=== PATIENT | male | born 1950 | race Two or more races ===

== ENCOUNTER → 2016-12-23 | Day surgery (SDC) | payer MEDICARE, OTHER ==
[2016-12-19 10:53] LABS: Basophils # (auto) 0 uL; Basophils % (auto) 0.8 % (0.0-2.0); Eosinophils # (auto) 0.1 uL; Eosinophils % (auto) 2.3 % (0.0-7.0); Hematocrit 43.9 % (41.0-53.0); Hemoglobin 14.3 g/dL (13.5-17.5); Lymphocytes # (auto) 2.6 uL; Lymphocytes % (auto) 40.4 % (10.0-50.0); Mean Corpuscular Hemoglobin 29.2 pg (28.0-32.0); Mean Corpuscular Hgb Conc. 32.5 g/dL (32.0-36.0); Mean Corpuscular Volume 89.6 fL (80.0-100.0); Mean Platelet Volume 8.4 fL (7.4-10.4); Monocytes # (auto) 0.7 uL; Monocytes % (auto) 10.6 % (0.0-12.0); Neutrophils % (auto) 45.9 % (37.0-80.0); Platelet Count (auto) 263 10^3/uL (140-450); Red Cell Distribution Width 12.6 % (11.6-16.0); White Blood Cell 6.5 10^3/uL (4.4-10.8)
[2016-12-19 11:14] LABS: INR 1.04 (0.9-1.15); Partial Thromboplastin Time 26.2 sec (22.64-33.71); Prothrombin Time 10.7 sec (9.37-12.3)
[~2016-12-23] VITALS: Ht 172.7 cm; Wt 88.9 kg
[~2016-12-23] MED LIST: LISI40TA PO; MIDAZOLAM HCL 5 MG/ML-1ML VIAL ONE; ROSU20TA14 PO; SODIUM CHLORIDE LOCK 10 ML ONE; diphenhdrAMINE HCL 50 MG/1 ML VL ONE; fentaNYL CITRATE 100 MCG/2 ML VL ONE
== END | disposition home or self-care (01) ==
LOC: GI 08:35
PROVIDERS: ATTEND Internal Medicine Gastroenterology
DX: Z53.9 Procedure and treatment not carried out, unspecified reason (principal)
CPT/HCPCS: 36415; 85025; 85049; 85610; 85730; J2250; J3010

== ENCOUNTER → 2017-02-04 | Outpatient (CLI) | payer MEDICARE, OTHER ==
[~2017-02-04] MED LIST changes: -MIDAZOLAM HCL 5 MG/ML-1ML VIAL ONE; -SODIUM CHLORIDE LOCK 10 ML ONE; -diphenhdrAMINE HCL 50 MG/1 ML VL ONE; -fentaNYL CITRATE 100 MCG/2 ML VL ONE
== END | disposition home or self-care (01) ==
LOC: LAB 08:52
DX: Z11.59 Encounter for screening for other viral diseases (principal)
CPT/HCPCS: 36415; 86704; 86706; 86708; 86803; 87340

== ENCOUNTER → 2018-10-27 | Outpatient (CLI) | payer MEDICARE, OTHER ==
[2018-10-27 09:45] LABS: Basophils # (auto) 0.1 uL; Basophils % (auto) 1.3 % (0.0-2.0); Eosinophils # (auto) 0.1 uL; Eosinophils % (auto) 1.9 % (0.0-7.0); Hematocrit 44.1 % (41.0-53.0); Hemoglobin 14.8 g/dL (13.5-17.5); Lymphocytes # (auto) 1.5 uL; Lymphocytes % (auto) 31.9 % (10.0-50.0); Mean Corpuscular Hemoglobin 30.8 pg (28.0-32.0); Mean Corpuscular Hgb Conc. 33.5 g/dL (32.0-36.0); Mean Corpuscular Volume 91.9 fL (80.0-100.0); Monocytes # (auto) 0.5 uL; Neutrophils # (auto) 2.6 uL; Neutrophils % (auto) 53.9 % (37.0-80.0); Platelet Count (auto) 227 10^3/uL (140-450); Red Cell Distribution Width 12.2 % (11.8-14.3); White Blood Cell 4.9 10^3/uL (4.4-10.8)
[2018-10-27 09:51] LABS: Urine Bacteria NONE SEEN /hpf (None Seen); Urine Blood Negative /uL (Negative); Urine Specific Gravity 1.016 (1.001-1.035); Urine WBC 1 /hpf (0 - 3)
[2018-10-27 10:16] LABS: Potassium 4.2 mmol/L (3.5-5.1)
[2018-10-27 10:22] LABS: Albumin 4.3 g/dL (3.4-5.0); BUN/Creatinine Ratio 13.1; Bilirubin, Total 0.8 mg/dL (0.2-1.0); Calcium 9.2 mg/dL (8.5-10.1); Total Protein 7.7 g/dL (6.4-8.2)
== END | disposition home or self-care (01) ==
LOC: LAB 08:58
PROVIDERS: ATTEND Internal Medicine
DX: I10 Essential (primary) hypertension (principal); E78.5 Hyperlipidemia, unspecified; Z79.899 Other long term (current) drug therapy
CPT/HCPCS: 36415; 80053; 80061; 81001; 83036; 84439; 84443; 84550; 85025

== ENCOUNTER → 2018-12-21 | Day surgery (SDC) | payer MEDICARE, OTHER ==
[2018-12-15 14:46] LABS: Basophils # (auto) 0.1 uL; Basophils % (auto) 1.2 % (0.0-2.0); Eosinophils # (auto) 0.1 uL; Eosinophils % (auto) 2.3 % (0.0-7.0); Hematocrit 43.9 % (41.0-53.0); Hemoglobin 14.7 g/dL (13.5-17.5); Lymphocytes # (auto) 2.3 uL; Lymphocytes % (auto) 36.1 % (10.0-50.0); Mean Corpuscular Hemoglobin 30.8 pg (28.0-32.0); Mean Corpuscular Hgb Conc. 33.5 g/dL (32.0-36.0); Monocytes # (auto) 0.9 uL; Monocytes % (auto) 14.3 % (0.0-12.0); Neutrophils # (auto) 2.9 uL; Neutrophils % (auto) 46.1 % (37.0-80.0); Nucleated Red Blood Cells % 0.1 %; Platelet Count (auto) 204 10^3/uL (140-450); Red Blood Cells 4.78 10^6/uL (4.5-5.90); Red Cell Distribution Width 12.6 % (11.8-14.3); White Blood Cell 6.4 10^3/uL (4.4-10.8)
[2018-12-15 15:20] LABS: INR 0.95 (0.9-1.15); Partial Thromboplastin Time 26.5 sec (23.78-33.04); Prothrombin Time 10.2 sec (9.27-12.13)
[~2018-12-21] VITALS: Ht 172.7 cm; Wt 82.1 kg
[~2018-12-21] MED LIST changes: +CHOL20007 PO; +COLC0.6T56 PO; +SODIUM CHLORIDE LOCK 10 ML ONE; +diphenhdrAMINE HCL 50 MG/1 ML VL ONE
[2018-12-21] MEDS: fentaNYL CITRATE 100 MCG/2 ML VL ONE ×3 (10:41→10:50)
[2018-12-21] MEDS: MIDAZOLAM HCL 5 MG/ML-1ML VIAL ONE ×3 (10:41→10:50)
[2018-12-21 11:31] VITALS: BP 113/68
== END | disposition home or self-care (01) ==
LOC: SUR 08:53
PROVIDERS: ATTEND Internal Medicine Gastroenterology
DX: Z12.11 Encounter for screening for malignant neoplasm of colon (principal); D12.5 Benign neoplasm of sigmoid colon; K57.30 Diverticulosis of large intestine without perforation or abscess without bleeding; K64.8 Other hemorrhoids; I10 Essential (primary) hypertension; M10.9 Gout, unspecified; L40.9 Psoriasis, unspecified; Z83.3 Family history of diabetes mellitus; Z88.6 Allergy status to analgesic agent; Z98.890 Other specified postprocedural states; Z80.1 Family history of malignant neoplasm of trachea, bronchus and lung; Z81.1 Family history of alcohol abuse and dependence; Z79.899 Other long term (current) drug therapy
CPT/HCPCS: 36415; 45385; 85025; 85610; 85730; 88305; J1200; J2250; J3010; J7030; G0500

== ENCOUNTER → 2019-09-14 | Outpatient (CLI) | payer MEDICARE, OTHER ==
[~2019-09-14] MED LIST changes: -SODIUM CHLORIDE LOCK 10 ML ONE; -diphenhdrAMINE HCL 50 MG/1 ML VL ONE
[2019-09-14 09:30] LABS: Urine WBC None Seen /hpf (0 - 3)
[2019-09-14 09:44] LABS: Basophils # (auto) 0 uL; Basophils % (auto) 0.9 % (0.0-2.0); Eosinophils # (auto) 0.1 uL; Eosinophils % (auto) 1.7 % (0.0-7.0); Hematocrit 43.9 % (41.0-53.0); Hemoglobin 14.6 g/dL (13.5-17.5); Lymphocytes # (auto) 1.8 uL; Lymphocytes % (auto) 34.9 % (10.0-50.0); Mean Corpuscular Hemoglobin 30.6 pg (28.0-32.0); Mean Corpuscular Hgb Conc. 33.4 g/dL (32.0-36.0); Mean Corpuscular Volume 91.8 fL (80.0-100.0); Monocytes # (auto) 0.4 uL; Monocytes % (auto) 8.7 % (0.0-12.0); Neutrophils # (auto) 2.8 uL; Neutrophils % (auto) 53.8 % (37.0-80.0); Platelet Count (auto) 221 10^3/uL (140-450); Red Blood Cells 4.78 10^6/uL (4.5-5.90); Red Cell Distribution Width 12.7 % (11.8-14.3); White Blood Cell 5.1 10^3/uL (4.4-10.8)
[2019-09-14 09:45] LABS: Urine Bacteria NONE SEEN /hpf (None Seen); Urine Blood Negative /uL (Negative); Urine Specific Gravity 1.023 (1.001-1.035)
[2019-09-14 10:26] LABS: Potassium 4.3 mmol/L (3.5-5.1)
[2019-09-14 10:42] LABS: Albumin 4.1 g/dL (3.4-5.0); BUN/Creatinine Ratio 15.5; Bilirubin, Total 0.8 mg/dL (0.2-1.0); Total Protein 7.5 g/dL (6.4-8.2); Uric Acid 5.9 mg/dL (3.5-7.2)
== END | disposition home or self-care (01) ==
LOC: LAB 08:39
PROVIDERS: ATTEND Nurse Practitioner
DX: E78.5 Hyperlipidemia, unspecified (principal); M1A.0720 Idiopathic chronic gout, left ankle and foot, without tophus (tophi)
CPT/HCPCS: 36415; 80053; 80061; 81001; 84443; 84550; 85025

== ENCOUNTER → 2020-12-29 | Outpatient (CLI) | payer OTHER ==
[~2020-12-29] MED LIST changes: -LISI40TA PO; +LISI40TA11 PO
[2020-12-29 08:00] LABS: Basophils # (auto) 0 10 ^3/uL (0-0.2); Basophils % (auto) 0.5 % (0.0-2.0); Eosinophils # (auto) 0.2 10 ^3/uL (0-0.8); Eosinophils % (auto) 2.5 % (0.0-7.0); Hematocrit 41.8 % (41.0-53.0); Hemoglobin 14.3 g/dL (13.5-17.5); Lymphocytes # (auto) 2.3 10 ^3/uL (0.4-5.4); Lymphocytes % (auto) 37.9 % (10.0-50.0); Mean Corpuscular Hemoglobin 31.3 pg (28.0-32.0); Mean Corpuscular Hgb Conc. 34.1 g/dL (32.0-36.0); Mean Corpuscular Volume 91.7 fL (80.0-100.0); Monocytes # (auto) 0.5 10 ^3/uL (0-1.3); Monocytes % (auto) 8.8 % (0.0-12.0); Neutrophils % (auto) 50.3 % (37.0-80.0); Nucleated Red Blood Cells % 0.1 %; Platelet Count (auto) 222 10^3/uL (140-450); Red Blood Cells 4.56 10^6/uL (4.5-5.90); Red Cell Distribution Width 12.7 % (11.8-14.3); White Blood Cell 5.9 10^3/uL (4.4-10.8)
[2020-12-29 08:06] LABS: Urine Amorphous Crystal MANY /hpf (None Seen); Urine Bacteria NONE SEEN /hpf (None Seen); Urine Blood Negative /uL (Negative); Urine Mucus FEW (None Seen); Urine WBC 2 /hpf (0 - 3)
[2020-12-29 08:29] LABS: Potassium 4.4 mmol/L (3.5-5.1)
[2020-12-29 08:38] LABS: Albumin 3.9 g/dL (3.4-5.0); BUN/Creatinine Ratio 15.9; Calcium 8.9 mg/dL (8.5-10.1); Total Protein 7.6 g/dL (6.4-8.2)
== END | disposition home or self-care (01) ==
LOC: LAB 07:46
PROVIDERS: ATTEND Student in an Organized Health Care Education/Training Program
DX: I10 Essential (primary) hypertension (principal); R73.9 Hyperglycemia, unspecified
CPT/HCPCS: 36415; 80053; 80061; 81001; 83036; 84443; 85025

== ENCOUNTER → 2021-02-20 | Outpatient (CLI) | payer OTHER | END | disposition home or self-care (01) | LOC: XYW 10:15 | PROVIDERS: ATTEND Orthopaedic Surgery Adult Reconstructive Orthopaedic Surgery | DX: S46.011A Strain of muscle(s) and tendon(s) of the rotator cuff of right shoulder, initial encounter (principal); S46.811A Strain of other muscles, fascia and tendons at shoulder and upper arm level, right arm, initial encounter; M19.011 Primary osteoarthritis, right shoulder; M25.411 Effusion, right shoulder; X58.XXXA Exposure to other specified factors, initial encounter; Y93.89 Activity, other specified; Y92.89 Other specified places as the place of occurrence of the external cause; Y99.8 Other external cause status | CPT/HCPCS: 73221 ==

== ENCOUNTER → 2021-06-20 | Outpatient (CLI) | payer OTHER ==
[~2021-06-20] VITALS: Ht 172.7 cm; Wt 74.8 kg
[~2021-06-20] MED LIST changes: +ADENOSINE 63 MG in GIVE UN-DILUTED 0 ML IV ONE
== END | disposition home or self-care (01) ==
LOC: XY 07:43
PROVIDERS: ATTEND Internal Medicine
DX: Z01.810 Encounter for preprocedural cardiovascular examination (principal)
CPT/HCPCS: 78452; 93017; A9500; J0153

== ENCOUNTER 2021-07-03 09:31 | Day surgery (SDC) | payer OTHER ==
[2021-06-28 11:49] LABS: Basophils # (auto) 0 10 ^3/uL (0-0.2); Basophils % (auto) 0.8 % (0.0-2.0); Eosinophils # (auto) 0.1 10 ^3/uL (0-0.8); Eosinophils % (auto) 0.9 % (0.0-7.0); Hematocrit 41.2 % (41.0-53.0); Hemoglobin 14.3 g/dL (13.5-17.5); Lymphocytes # (auto) 2.3 10 ^3/uL (0.4-5.4); Lymphocytes % (auto) 40.6 % (10.0-50.0); Mean Corpuscular Hemoglobin 31.2 pg (28.0-32.0); Mean Corpuscular Hgb Conc. 34.6 g/dL (32.0-36.0); Monocytes # (auto) 0.6 10 ^3/uL (0-1.3); Monocytes % (auto) 10.4 % (0.0-12.0); Neutrophils # (auto) 2.7 10 ^3/uL (1.6-8.6); Neutrophils % (auto) 47.3 % (37.0-80.0); Red Blood Cells 4.58 10^6/uL (4.5-5.90); Red Cell Distribution Width 12.1 % (11.8-14.3); White Blood Cell 5.7 10^3/uL (4.4-10.8)
[2021-06-28 11:54] LABS: Urine Bacteria NONE SEEN /hpf (None Seen); Urine Blood Negative /uL (Negative); Urine WBC 1 /hpf (0 - 3)
[2021-06-28 12:06] LABS: INR 1.05 (0.9-1.15); Partial Thromboplastin Time 26.2 sec (23.0-31.2)
[2021-06-28 12:45] LABS: Calcium 9.2 mg/dL (8.5-10.1); Potassium 5.2 mmol/L (3.5-5.1)
[2021-06-28 12:48] LABS: Bilirubin, Total 0.6 mg/dL (0.2-1.0); Total Protein 7.6 g/dL (6.4-8.2)
[~2021-07-03] VITALS: Ht 172.7 cm; Wt 83.9 kg
[~2021-07-03 09:31] MED LIST changes: -ADENOSINE 63 MG in GIVE UN-DILUTED 0 ML IV ONE; -CHOL20007 PO; -COLC0.6T56 PO; +EPINEPHrine HCL 1 MG/1 ML AMP ONE
[2021-07-03] MEDS ORDERED: ceFAZolin 1GM/50ML 100 ML IV ONE (10:05)
[2021-07-03] MEDS ORDERED: BUPIVACAINE 0.5% MPF INJ 30ML SDV IJ ONE ×2 (11:37→14:31)
[2021-07-03] MEDS ORDERED: fentaNYL CITRATE 5 ML ONE (12:26)
[2021-07-03] MEDS ORDERED: MIDAZOLAM HCL 2MG/2ML 2ml VIAL (1mg/ml) ONE (12:26)
[2021-07-03] MEDS ORDERED: PROPOFOL 10 MG/ML 20 ML IV ONE (12:30)
[2021-07-03] MEDS ORDERED: LIDOCAINE 2% (LOCAL ANESTH.) PF 5ml SDV ONE (12:30)
[2021-07-03] MEDS ORDERED: ONDANSETRON HCL 4 MG/2 ML VIAL ONE (12:30)
[2021-07-03] MEDS ORDERED: ROCURONIUM 10MG/ML 10ML VIAL IV ONE (12:33)
[2021-07-03] MEDS ORDERED: EPINEPHrine HCL 1 MG/1 ML AMP ONE (14:13)
[2021-07-03] MEDS ORDERED: HYDROmorphone HCL 2 MG/ML VL ONE (14:34)
[2021-07-03] MEDS ORDERED: ONDANSETRON HCL 4 MG/2 ML VIAL IV PRN (15:15)
[2021-07-03] MEDS ORDERED: HYDROmorphone HCL 2 MG/ML VL IV PRN (15:15)
[2021-07-03 15:35] VITALS: BP 151/78
== END 2021-07-03 16:10 | disposition home or self-care (01) ==
LOC: SUR 09:31
PROVIDERS: ATTEND Orthopaedic Surgery Sports Medicine
DX: M75.111 Incomplete rotator cuff tear or rupture of right shoulder, not specified as traumatic (principal); M75.41 Impingement syndrome of right shoulder; S46.211A Strain of muscle, fascia and tendon of other parts of biceps, right arm, initial encounter; S43.431A Superior glenoid labrum lesion of right shoulder, initial encounter; M94.211 Chondromalacia, right shoulder; M65.9 Synovitis and tenosynovitis, unspecified; I10 Essential (primary) hypertension; E78.5 Hyperlipidemia, unspecified; J45.909 Unspecified asthma, uncomplicated; I25.2 Old myocardial infarction; F17.200 Nicotine dependence, unspecified, uncomplicated; Z20.822 Contact with and (suspected) exposure to COVID-19; Y92.89 Other specified places as the place of occurrence of the external cause; Y93.89 Activity, other specified; Y99.8 Other external cause status
CPT/HCPCS: 29826; 29827; 29828; 36415; 80053; 81001; 84132; 85025; 85610; 85730; J0171; J0690; J1170; J2001; J2250; J2405; J2704; J3010; J3490; U0003

== ENCOUNTER → 2022-07-29 | Outpatient (CLI) | payer OTHER ==
[~2022-07-29] MED LIST changes: -EPINEPHrine HCL 1 MG/1 ML AMP ONE
[2022-07-29 07:17] LABS: Basophils # (auto) 0.1 10 ^3/uL (0-0.2); Basophils % (auto) 0.9 % (0.0-2.0); Eosinophils # (auto) 0.1 10 ^3/uL (0-0.8); Eosinophils % (auto) 1.8 % (0.0-7.0); Hematocrit 41.4 % (41.0-53.0); Hemoglobin 13.8 g/dL (13.5-17.5); Lymphocytes # (auto) 2.5 10 ^3/uL (0.4-5.4); Lymphocytes % (auto) 40.7 % (10.0-50.0); Mean Corpuscular Hemoglobin 29.8 pg (28.0-32.0); Mean Corpuscular Hgb Conc. 33.3 g/dL (32.0-36.0); Mean Corpuscular Volume 89.5 fL (80.0-100.0); Monocytes # (auto) 0.6 10 ^3/uL (0-1.3); Monocytes % (auto) 9.1 % (0.0-12.0); Neutrophils # (auto) 2.9 10 ^3/uL (1.6-8.6); Neutrophils % (auto) 47.5 % (37.0-80.0); Red Blood Cells 4.62 10^6/uL (4.5-5.90); White Blood Cell 6.2 10^3/uL (4.4-10.8)
[2022-07-29 07:53] LABS: Albumin 3.9 g/dL (3.4-5.0); Calcium 9.2 mg/dL (8.5-10.1); Potassium 4.2 mmol/L (3.5-5.1)
[2022-07-29 07:57] LABS: Bilirubin, Total 0.8 mg/dL (0.2-1.0); Total Protein 7.2 g/dL (6.4-8.2)
== END | disposition home or self-care (01) ==
LOC: LAB 06:48
PROVIDERS: ATTEND Student in an Organized Health Care Education/Training Program
DX: I10 Essential (primary) hypertension (principal); E78.00 Pure hypercholesterolemia, unspecified
CPT/HCPCS: 36415; 80053; 80061; 82274; 85025

== ENCOUNTER → 2023-07-21 | Outpatient (CLI) | payer OTHER ==
[~2023-07-21] MED LIST changes: -LISI40TA11 PO; +LISI40TA16 PO
[2023-07-21 07:42] LABS: Calcium 9.4 mg/dL (8.5-10.1); Potassium 4.1 mmol/L (3.5-5.1)
[2023-07-21 07:47] LABS: BUN/Creatinine Ratio 16.5 (10.0-20.0)
== END | disposition home or self-care (01) ==
LOC: LAB 07:01
PROVIDERS: ATTEND Student in an Organized Health Care Education/Training Program
DX: Z12.11 Encounter for screening for malignant neoplasm of colon (principal); E78.49 Other hyperlipidemia; I10 Essential (primary) hypertension
CPT/HCPCS: 36415; 80048; 80061; 82274

== ENCOUNTER 2024-01-21 09:52 | Emergency (ER) | payer OTHER ==
[~2024-01-21] VITALS: Ht 172.7 cm; Wt 84.2 kg
[2024-01-21 10:53] LABS: Basophils # (auto) 0.1 10 ^3/uL (0-0.2); Basophils % (auto) 0.7 % (0.0-2.0); Eosinophils # (auto) 0.1 10 ^3/uL (0-0.8); Eosinophils % (auto) 0.9 % (0.0-7.0); Hematocrit 42.4 % (41.0-53.0); Hemoglobin 14.4 g/dL (13.5-17.5); Lymphocytes # (auto) 1.9 10 ^3/uL (0.4-5.4); Lymphocytes % (auto) 22.1 % (10.0-50.0); Mean Corpuscular Hemoglobin 30.2 pg (28.0-32.0); Mean Corpuscular Hgb Conc. 33.9 g/dL (32.0-36.0); Mean Corpuscular Volume 89.2 fL (80.0-100.0); Monocytes # (auto) 0.8 10 ^3/uL (0-1.3); Monocytes % (auto) 9.8 % (0.0-12.0); Neutrophils # (auto) 5.8 10 ^3/uL (1.6-8.6); Neutrophils % (auto) 66.5 % (37.0-80.0); Red Blood Cells 4.76 10^6/uL (4.5-5.90); Red Cell Distribution Width 12.5 % (11.8-14.3); White Blood Cell 8.7 10^3/uL (4.4-10.8)
[2024-01-21 11:20] LABS: Alanine Aminotransferase 29 U/L (7-40); Albumin 4.7 g/dL (3.2-4.8); Alkaline Phosphatase 49 U/L (46-116); Anion Gap 7 (5-15); Aspartate Aminotransferase 47 U/L (13-40); BUN/Creatinine Ratio 20.5 (10.0-20.0); Blood Urea Nitrogen 18 mg/dL (9-23); Calcium 9.6 mg/dL (8.5-10.1); Carbon Dioxide 27 mmol/L (20-30); Chloride 106 mmol/L (98-107); Glucose 98 mg/dL (74-106); Sodium 140 mmol/L (136-145)
[2024-01-21 11:21] LABS: Total Protein 7.2 g/dL (5.7-8.2)
[2024-01-21] MEDS: methylPREDNISolone SOD SUCC 125 MG/2 ML VL IV ONE (11:43)
[2024-01-21] MEDS: IPRATROPIUM BROM 0.5 MG/2.5ML INH SOL NEB ONE (11:46)
[2024-01-21] MEDS: ALBUTEROL SULF 2.5 MG/0.5ML(0.5%) NEB SOLN NEB ONE (11:47)
[2024-01-21 11:51] LABS: Base Excess -4.2 mmol/L (-2.0-2.0)
[2024-01-21 12:13] VITALS: BP 114/80; PULSE 85; RESP 18; TEMP 98.4; O2SAT 98
[2024-01-21] MEDS: FUROSEMIDE 40 MG/4 ML VIAL IV ONE (12:13)
[2024-01-21 12:48] LABS: Urine Bacteria FEW /hpf (None Seen); Urine Blood 1+ /uL (Negative); Urine Clarity HAZY (Clear); Urine Color Yellow (Yellow); Urine Mucus FEW (None Seen); Urine Protein, UAD 1+ (Negative); Urine Specific Gravity 1.038 (1.001-1.035); Urine WBC 5 /hpf (0 - 3)
[2024-01-21 13:22] LABS: COVID19 ANTIGEN SOFIA FIA NEGATIVE (NEGATIVE)
[2024-01-21] MEDS: cefTRIAXone 1GM/50ML D5W 50 ML IV ONE (14:39)
[2024-01-21] MEDS ORDERED: FURO1TAB33 PO (19:03)
[2024-01-21] MEDS ORDERED: CEPH500C PO (19:05)
== END 2024-01-21 19:35 | disposition home or self-care (01) ==
LOC: ER 09:52
DX: J90 Pleural effusion, not elsewhere classified (principal); R06.00 Dyspnea, unspecified; N39.0 Urinary tract infection, site not specified; E78.5 Hyperlipidemia, unspecified; I10 Essential (primary) hypertension; F12.10 Cannabis abuse, uncomplicated; Z20.822 Contact with and (suspected) exposure to COVID-19
CPT/HCPCS: 36415; 36600; 71046; 80053; 81001; 82805; 83880; 84484; 85025; 85379; 87426; 93005; 94640; 96365; 96375; 99285; J0696; J1940; J2930; J7644

== ENCOUNTER 2024-01-30 17:09 | Emergency (ER) | payer OTHER ==
[~2024-01-30] VITALS: Ht 172.7 cm; Wt 82.1 kg
[~2024-01-30 17:09] MED LIST changes: +CEPH500C PO; +FURO1TAB33 PO
[2024-01-30 18:00] LABS: Base Excess 0.1 mmol/L (-2.0-2.0)
[2024-01-30 18:14] LABS: Basophils # (auto) 0.1 10 ^3/uL (0-0.2); Basophils % (auto) 1.1 % (0.0-2.0); Eosinophils # (auto) 0.1 10 ^3/uL (0-0.8); Eosinophils % (auto) 1.2 % (0.0-7.0); Hematocrit 44.6 % (41.0-53.0); Hemoglobin 14.8 g/dL (13.5-17.5); Lymphocytes # (auto) 2.1 10 ^3/uL (0.4-5.4); Lymphocytes % (auto) 28.6 % (10.0-50.0); Mean Corpuscular Hemoglobin 29.9 pg (28.0-32.0); Mean Corpuscular Hgb Conc. 33.1 g/dL (32.0-36.0); Mean Corpuscular Volume 90.2 fL (80.0-100.0); Monocytes # (auto) 0.9 10 ^3/uL (0-1.3); Monocytes % (auto) 12.4 % (0.0-12.0); Neutrophils # (auto) 4.2 10 ^3/uL (1.6-8.6); Neutrophils % (auto) 56.7 % (37.0-80.0); Nucleated Red Blood Cells % 0.1 %; Red Blood Cells 4.94 10^6/uL (4.5-5.90); Red Cell Distribution Width 12.3 % (11.8-14.3); White Blood Cell 7.4 10^3/uL (4.4-10.8)
[2024-01-30 18:30] LABS: Alanine Aminotransferase 35 U/L (7-40); Albumin 4.6 g/dL (3.2-4.8); Alkaline Phosphatase 49 U/L (46-116); Anion Gap 8 (5-15); Aspartate Aminotransferase 29 U/L (13-40); BUN/Creatinine Ratio 18.5 (10.0-20.0); Bilirubin, Total 0.5 mg/dL (0.2-1.0); Blood Urea Nitrogen 17 mg/dL (9-23); Calcium 9.3 mg/dL (8.7-10.4); Carbon Dioxide 25 mmol/L (20-30); Chloride 108 mmol/L (98-107); Glucose 108 mg/dL (74-106); Magnesium 1.9 mg/dL (1.6-2.6); Potassium 4.2 mmol/L (3.5-5.1); Sodium 141 mmol/L (136-145)
[2024-01-30 18:31] LABS: Total Protein 7.2 g/dL (5.7-8.2)
[2024-01-30 18:41] LABS: Urine Amorphous Crystal FEW /hpf (None Seen); Urine Bacteria NONE SEEN /hpf (None Seen); Urine Blood Negative /uL (Negative); Urine Clarity HAZY (Clear); Urine Color Yellow (Yellow); Urine Mucus FEW (None Seen); Urine Protein, UAD TRACE (Negative); Urine Specific Gravity 1.024 (1.001-1.035); Urine WBC 2 /hpf (0 - 3); Urine pH 7.5 (5.0-8.0)
[2024-01-30] MEDS ORDERED: PRED20TA2 PO (20:21)
[2024-01-30 20:42] VITALS: BP 111/79; PULSE 99; RESP 18; TEMP 97.7; O2SAT 98
== END 2024-01-30 20:43 | disposition home or self-care (01) ==
LOC: ER 17:09
DX: J90 Pleural effusion, not elsewhere classified (principal); R06.00 Dyspnea, unspecified; I10 Essential (primary) hypertension; E78.5 Hyperlipidemia, unspecified; F15.90 Other stimulant use, unspecified, uncomplicated; Z98.890 Other specified postprocedural states
CPT/HCPCS: 36415; 36600; 71045; 80053; 81001; 82805; 83605; 83735; 83880; 84484; 85025; 85379; 87040; 93005

== ENCOUNTER → 2024-10-01 | Outpatient (CLI) | payer OTHER ==
[~2024-10-01] MED LIST changes: +PRED20TA2 PO
[2024-10-01 07:07] LABS: Urine Bacteria None Seen /hpf (None Seen)
[2024-10-01 07:12] LABS: Basophils # (auto) 0.1 10 ^3/uL (0-0.2); Basophils % (auto) 0.8 % (0.0-2.0); Eosinophils # (auto) 0.2 10 ^3/uL (0-0.8); Eosinophils % (auto) 3.3 % (0.0-7.0); Hematocrit 43.7 % (41.0-53.0); Hemoglobin 14.5 g/dL (13.5-17.5); Lymphocytes # (auto) 2.3 10 ^3/uL (0.4-5.4); Lymphocytes % (auto) 38.6 % (10.0-50.0); Mean Corpuscular Hgb Conc. 33.2 g/dL (32.0-36.0); Mean Corpuscular Volume 90.2 fL (80.0-100.0); Monocytes # (auto) 0.6 10 ^3/uL (0-1.3); Monocytes % (auto) 9.3 % (0.0-12.0); Neutrophils # (auto) 2.9 10 ^3/uL (1.6-8.6); Platelet Count (auto) 224 10^3/uL (140-450); Red Blood Cells 4.84 10^6/uL (4.5-5.90); Red Cell Distribution Width 12.5 % (11.8-14.3); White Blood Cell 5.9 10^3/uL (4.4-10.8)
[2024-10-01 07:19] LABS: Urine Blood 1+ /uL (Negative); Urine Clarity Clear (Clear); Urine Color Light-Yellow (Yellow); Urine Mucus FEW (None Seen); Urine Protein, UAD Negative (Negative); Urine Specific Gravity 1.021 (1.001-1.035); Urine Urobilinogen Normal (Negative); Urine WBC 1 /hpf (0 - 3); Urine pH 6.5 (5.0-9.0)
[2024-10-01 07:33] LABS: Prostate Specific Antigen 0.98 ng/mL (0.0-4.0)
[2024-10-01 07:35] LABS: Alanine Aminotransferase 19 U/L (7-40); Albumin 4.5 g/dL (3.2-4.8); Alkaline Phosphatase 45 U/L (46-116); Anion Gap 9 (5-15); Aspartate Aminotransferase 22 U/L (13-40); BUN/Creatinine Ratio 16.3 (10.0-20.0); Bilirubin, Total 0.7 mg/dL (0.2-1.0); Blood Urea Nitrogen 14 mg/dL (9-23); Carbon Dioxide 24 mmol/L (20-31); Chloride 109 mmol/L (98-107); Cholesterol 123 mg/dL (< 200); Glucose 108 mg/dL (74-106); HDL Cholesterol 45 mg/dL (40-59); LDL Cholesterol 61 mg/dL (< 100); Potassium 3.9 mmol/L (3.5-5.1); Sodium 142 mmol/L (136-145); Total Protein 7.3 g/dL (5.7-8.2); Triglycerides 103 mg/dL (< 150)
[2024-10-01 07:38] LABS: Free T4 (Free Thyroxine) 1.24 ng/dL (0.89-1.76)
[2024-10-01 08:33] LABS: Erythrocyte Sedimentation Rate 2 mm/hr (0-20)
== END | disposition home or self-care (01) ==
LOC: LAB 06:42
PROVIDERS: ATTEND Internal Medicine
DX: I10 Essential (primary) hypertension (principal); Z79.899 Other long term (current) drug therapy
CPT/HCPCS: 36415; 80053; 80061; 81001; 84153; 84439; 84443; 85025; 85652

== ENCOUNTER 2024-11-20 16:37 | Inpatient (IN) | payer OTHER, MEDICARE ==
[~2024-11-20] VITALS: Ht 172.7 cm; Wt 85.5 kg
--- NOTE | 2024-11-20 17:11 | ED.PDOC ---
SOB-HPI HPI Comments HPI: Poor Historian. 74 year old male presents to the ED with chief complaint of cough and SOB. Patient reports he has been experiencing a cough with associated SOB since Friday. Patient relays that on , he had a bad productive cough where he ended up coughing up thick phlegm with blood present and about 3 hours later, he began to experience right anterior lower rib cage stabbing pain with deep inspiration. Patient states he had visited urgent care in [facility] today and was advised to come to the ED for further evaluation and treatment. Patient denies any fever, chills, N/V/D, dizziness, headache, or nasal congestion. Initial Vitals: Temp: 97.8F HR: 108 RR: 20 BP: 129/82 O2 Sat.: 98% Past Medical History: PNA, HLD, HTN Past Surgical History: Rt Rotator Cuff surgery, Hernia repair, Salivary gland removal Social History: Denies smoking and ETOH use. Marijuana use Medications: Metoprolol Allergies: Aspirin REVIEW OF SYSTEMS: CONSTITUTIONAL: Denies acute: fever, diaphoresis, chills, generalized weakness. HEAD: Denies acute: headache, photophobia Eyes: Denies acute: Double vision, vision loss, eye pain, eye discharge. EARS: Denies acute: tinnitus, hearing loss, ear discharge, ear pain, THROAT: Denies acute: sore throat, swelling, difficulty swallowing , pain with swallowing, change in voice. NECK: Denies acute: neck pain, neck swelling, stiff neck. HEART: Denies acute : chest pain, palpitations, LUNGS: Denies acute: SOB, wheezing, cough, hemoptysis ABDOMEN: Denies acute: abdominal pain, Nausea, Vomiting, diarrhea, melena , hematemesis, hematochezia SKIN: Denies acute: rash, redness, lesions, itchiness. EXTREMITIES: Denies acute: calf pain, numbness, tingling, weakness, denies pain in extremity. Denies acute: Low back pain. Neuro: Denies acute: focal neurological deficit, motor or sensory focal neurological deficit, tremors, seizure like activity, confusion, dizziness, change in mental status, loss of bowel or bladder function, cauda equina like symptoms. : Denies acute: dysuria, hematuria, flank pain, increase in urinary frequency. PSYCH: Denies acute: hallucination, suicidal ideation, homicidal ideation. FEMALE: Denies acute: abnormal vaginal bleeding, foul odor, unusual discharge. PHYSICAL EXAM: General: no acute distress, awake and alert. Head: normocephalic, atraumatic. Neck: supple, trachea is midline, no swelling. Throat: Normal phonation. Eyes:, no erythema, no purulent discharge, no proptosis, no icterus. Heart: regular rate, regular rhythm, no significant murmur appreciated. Lungs: no apparent respiratory distress, Able to speak in full sentences. No wheezing, no rhonchi, no crackles. No stridors Clear to auscultation bilaterally. Abdomen: non tender to palpation, non distended, soft, no guarding, no rebound, + bowel sounds. Neuro: Awake, Alert, oriented to name, self, situation, follows commands GCS=15. Speech is normal. Skin: no petechia, no purpura, no cyanosis, non-pale, not jaundice. Lower extremities: --no - Pitting edema no deformity, no focal swelling, no calf TTP. Makes eye contact. moves all four extremities. Face: no apparent facial droop. No CVA tenderness to percussion bilaterally. Ambulating in the ED independently. Ears: Normal appearing TM b/l, Stroke: finger to nose cerebellar testing is intact. No pronator drift. Symmetrical rod puller muscle strength b/l PERRLA, EOM-I CN 2-12 are grossly intact, Pedal pulses are palpable. No nystagmus. No nuchal rigidity, Kernig's sign, Brudzinski's sign, no meningeal signs. Time Seen by MD: 16:51 Primary Care Provider: MICKY Reviewed notes: Nurses Notes, Allergies Information Source: Patient Past Medical History PAST MEDICAL HISTORY: High Lipids, HTN Surgical History: Hernia Repair Family History Family History: Unknown Social History Smoker: Non-Smoker Alcohol: Sober Drugs: Marijuana Lives In: Home Was a procedure done? Was a procedure done?: No Differential Dx Differential Diagnosis: Other (Ddx include but not limitied to gastritis, musculoskeletal pain, radiculopathy, atypical chest pain, dissection, aneurysm, ACS, unstable angina, hiatal hernia, GERD, anxiety, costochondritis, PE, pneumothroax, neoplasm, cardiac ischemia, drug abuse, anemia.) X-Ray, Labs, Meds, VS Vital Signs Date Time Temp Pulse Resp B/P (MAP) Pulse Ox O2 Delivery O2 Flow Rate FiO2 11/21/24 08:16 83 20 93 Room Air 11/21/24 08:15 83 20 123/66 (85) 93 11/21/24 07:20 17 Room Air* 0 11/21/24 06:00 83 16 123/74 (90) 99 11/21/24 05:00 97 18 120/70 (87) 93 11/21/24 02:55 97.8 103 16 125/76 (92) 95 97.8 11/21/24 02:55 103 15 95 Room Air* 0 11/20/24 19:44 98.0 105 20 125/71 (89) 97 98.0 11/20/24 19:44 105 18 97 Room Air* 0 11/20/24 19:32 20 94 Room Air* 0 11/20/24 17:10 97.8 108 20 129/82 (98) 97 Lab Test 11/20/24 20:36 11/20/24 19:54 11/20/24 19:26 11/20/24 18:50 Range/Units Urine Color Light-orange Yellow Urine Clarity Clear Clear Urine pH 6.0 5.0-9.0 Urine Specific [place] > 1.050 H 1.001-1.035 Urine Protein 2+ H Negative Urine Ketones 1+ H Negative Urine Blood 1+ H Negative /uL Urine Nitrite Negative Negative Urine Bilirubin Negative Negative Urine Urobilinogen 2 H Negative mg/dL Urine Leukocyte Esterase Negative Negative /uL Urine RBC 9 0 - 3 /hpf Urine WBC 14 0 - 3 /hpf Urine Squamous Epithelial Cells Few <5 /hpf Urine Bacteria None seen None Seen /hpf Urine Mucus Moderate None Seen Urine Glucose Normal Normal mg/dL Troponin I High Sensitivity 3 L 3 L </=54 ng/L Blood Gas Specimen Type Arterial Blood Gas Sample Site Right radial Blood Gas Patient Temperature 37.0 Arterial Blood Date Drawn [id number] Arterial Blood pH 7.440 7.350-7.450 Arterial Blood Partial Pressure CO2 34.9 L 35.0-48.0 mmHg Arterial Blood Partial Pressure O2 68.6 L 83.0-108.0 mmHg Arterial Blood HCO3 23.2 21.0-28.0 mmol/L Arterial Blood Oxygen Saturation 93.9 L 94.0-98.0 % Arterial Blood Base Excess -0.3 -2.0-3.0 mmol/L Arterial Blood Oxyhemoglobin 92.6 L 94.0-98.0 % Arterial Blood Carboxyhemoglobin 0.9 0.5-1.5 % Arterial Blood Methemoglobin 0.5 0.0-1.5 % Terry Test Yes Blood Gas Total Hemoglobin 15.50 13.5-17.5 g/dL Blood Gas Modality Room air FiO2 % 21.0 Test 11/20/24 17:28 11/20/24 17:23 11/20/24 17:13 Range/Units Influenza Type A Antigen Negative Negative Influenza Type B Antigen Negative Negative SARS-CoV-2 Antigen (Rapid) Negative NEGATIVE Lactic Acid Level 1.3 0.4-2.0 mmol/L White Blood Count 14.8 H 4.4-10.8 10^3/uL Red Blood Count 4.96 4.5-5.90 10^6/uL Hemoglobin 15.1 13.5-17.5 g/dL Hematocrit 44.7 41.0-53.0 % Mean Corpuscular Volume 90.2 80.0-100.0 fL Mean Corpuscular Hemoglobin 30.4 28.0-32.0 pg Mean Corpuscular Hemoglobin Concent 33.7 32.0-36.0 g/dL Red Cell Distribution Width 12.6 11.8-14.3 % Platelet Count 283 140-450 10^3/uL Mean Platelet Volume 8.9 6.9-10.8 fL Neutrophils (%) (Auto) 75.9 37.0-80.0 % Lymphocytes (%) (Auto) 10.6 10.0-50.0 % Monocytes (%) (Auto) 13.3 H 0.0-12.0 % Eosinophils (%) (Auto) 0.0 0.0-7.0 % Basophils (%) (Auto) 0.2 0.0-2.0 % Neutrophils # (Auto) 11.2 H 1.6-8.6 10 ^3/uL Lymphocytes # (Auto) 1.6 0.4-5.4 10 ^3/uL Monocytes # (Auto) 2.0 H 0-1.3 10 ^3/uL Eosinophils # (Auto) 0 0-0.8 10 ^3/uL Basophils # (Auto) 0 0-0.2 10 ^3/uL Nucleated Red Blood Cells 0.0 % D-Dimer, Quantitative 1.47 H 0.0-0.49 mg/L FEU Sodium Level 138 136-145 mmol/L Potassium Level 4.1 3.5-5.1 mmol/L Chloride Level 103 98-107 mmol/L Carbon Dioxide Level 24 20-31 mmol/L Anion Gap 11 5-15 Blood Urea Nitrogen 27 H 9-23 mg/dL Creatinine 1.00 0.700-1.30 mg/dL Glomerular Filtration Rate Calc 79 >90 mL/min BUN/Creatinine Ratio 27.0 H 10.0-20.0 Serum Glucose 125 H 74-106 mg/dL Calcium Level 10.3 8.7-10.4 mg/dL Total Bilirubin 1.6 H 0.2-1.0 mg/dL Aspartate Amino Transferase (AST) 22 13-40 U/L Alanine Aminotransferase (ALT) 19 7-40 U/L Alkaline Phosphatase 75 46-116 U/L Troponin I High Sensitivity 3 L </=54 ng/L B-Type Natriuretic Peptide 40.47 0-100 pg/mL Total Protein 7.6 5.7-8.2 g/dL Albumin 4.7 3.2-4.8 g/dL [place] [id number] Ph: [phone] DIAGNOSTIC IMAGING Diagnostic Imaging Report : [id number] Signed PATIENT: TERRIE HILL ACCT: [id number] UNIT: [id number] : 1950 LOC: ER ROOM / BED: / AGE / SEX: 74 / M ADM STATUS: REG ER SERVICE 1708 ORDERING PHYSICIAN: ALDEN CALLEJAS DO PROCEDURE(s): CXRP - CHEST PORTABLE REASON: sob ORDER NUMBER(s): [id number], ACCESSION NUMBER(s): [id number] CHEST RADIOGRAPH Indication: sob Technique: Single frontal view of the chest was obtained Comparison: XY CHEST PORTABLE on DOS: 01/30/24 FINDINGS: Lines and Tubes: None Lungs: No focal consolidation. Pleura: No effusion. No pneumothorax. Cardiomediastinal contours: Unremarkable Bones: No acute osseous abnormality. IMPRESSION: No acute cardiopulmonary disease. ATED BY: ASIA MELENDEZ MD DICTATED DATE/TIME: 11/20/241935 SIGNED BY: ASIA MELENDEZ MD SIGNED DATE/TIME: 11/20/241935 CC: Time of 1ST Reevaluation: 17:51 Reevaluation 1ST: Unchanged Patient Education/Counseling: Diagnosis, Treatment Family Education/Counseling: Diagnosis, Treatment Comments Patient presented with the above HPI.---cardiac---workup was initiated. patient was found with the above mentioned diagnosis. the following medications were ordered: monitoring specialist, BNP, CMP, CBC, COVID test, lactic acid, troponin, UA, chest x- ray, influenza test, EKG, sodium chloride fluids, D-dimer, ABG, albuterol lottie tment, ipratropium, Solu-Medrol, CT angio of the chest with contrast, Zofran, Rocephin 1 g, Patient ED course and VS have been stabilized. Patient has been reassessed in the ED and remained in a stable condition. Pertinent incidental findings were discussed with the patient and/or family. Patient/family voices understanding and is agreeable with plan. Patient has been observed in the ED adequate length of time to insure improvement/stability. Escalation of care considered: Consideration of escalation to observation or admission Patient was ADMITTED to the medicine team for further evaluation and treatment of their presentation. All the reports of any imaging studies that were ordered by myself were reviewed by myself. Departure 1 Departure Time of Disposition: 19:34 Impression: Primary Impression: Hypoxia Additional Impressions: Chest pain Cough Disposition: ADMITTED INPATIENT Admit to: Tele Condition: Guarded Discharged With: Self Critical Care Note Critical Care Time?: No Heart Score Heart Score: Heart Score Response (Comments) Value History Moderate Suspicious 1 EKG Normal 0 Age >65 2 Risk Factors >3 or Hx ASHD 2 Troponin Normal limit 0 Total 5 I personally scribed for ALDEN CALLEJAS DO ([email or web address]) on 11/20/24 at 17:22. Electronically submitted by Baron Sullivan ([email or web address]). I personally scribed for ALDEN CALLEJAS DO ([email or web address]) on 11/20/24 at 19:24. Electronically submitted by Love Martínez ([email or web address]). I personally scribed for ALDEN CALLEJAS DO ([email or web address]) on 11/20/24 at 19:43. Electronically submitted by Love Martínez ([email or web address]). ALDEN CALLEJAS DO Nov 20, 2024 17:11
[2024-11-20 18:35] LABS: Basophils # (auto) 0 10 ^3/uL (0-0.2); Basophils % (auto) 0.2 % (0.0-2.0); Eosinophils # (auto) 0 10 ^3/uL (0-0.8); Hematocrit 44.7 % (41.0-53.0); Hemoglobin 15.1 g/dL (13.5-17.5); Lymphocytes # (auto) 1.6 10 ^3/uL (0.4-5.4); Lymphocytes % (auto) 10.6 % (10.0-50.0); Mean Corpuscular Hemoglobin 30.4 pg (28.0-32.0); Mean Corpuscular Hgb Conc. 33.7 g/dL (32.0-36.0); Mean Corpuscular Volume 90.2 fL (80.0-100.0); Monocytes % (auto) 13.3 % (0.0-12.0); Neutrophils # (auto) 11.2 10 ^3/uL (1.6-8.6); Neutrophils % (auto) 75.9 % (37.0-80.0); Platelet Count (auto) 283 10^3/uL (140-450); Red Blood Cells 4.96 10^6/uL (4.5-5.90); Red Cell Distribution Width 12.6 % (11.8-14.3); White Blood Cell 14.8 10^3/uL (4.4-10.8)
[2024-11-20 18:48] LABS: Alanine Aminotransferase 19 U/L (7-40); Albumin 4.7 g/dL (3.2-4.8); Alkaline Phosphatase 75 U/L (46-116); Anion Gap 11 (5-15); Aspartate Aminotransferase 22 U/L (13-40); Calcium 10.3 mg/dL (8.7-10.4); Carbon Dioxide 24 mmol/L (20-31); Chloride 103 mmol/L (98-107); Potassium 4.1 mmol/L (3.5-5.1); Sodium 138 mmol/L (136-145); Total Protein 7.6 g/dL (5.7-8.2)
[2024-11-20 18:49] LABS: Bilirubin, Total 1.6 mg/dL (0.2-1.0); Blood Urea Nitrogen 27 mg/dL (9-23); Glucose 125 mg/dL (74-106)
[2024-11-20 19:30] LABS: Base Excess -0.3 mmol/L (-2.0-3.0)
[2024-11-20] MEDS: IPRATROPIUM BROM 0.5 MG/2.5ML INH SOL NEB ONE (19:32)
[2024-11-20] MEDS: ALBUTEROL SULF 2.5 MG/0.5ML(0.5%) NEB SOLN NEB ONE (19:32)
--- NOTE | 2024-11-20 19:38 | DVH ---
CHEST RADIOGRAPH Indication: sob Technique: Single frontal view of the chest was obtained Comparison: XY CHEST PORTABLE on DOS: 01/30/24 FINDINGS: Lines and Tubes: None Lungs: No focal consolidation. Pleura: No effusion. No pneumothorax. Cardiomediastinal contours: Unremarkable Bones: No acute osseous abnormality. IMPRESSION: No acute cardiopulmonary disease.
[2024-11-20] MEDS: SODIUM CHLORIDE 0.9% 1,000 ML IV ONE (19:39)
[2024-11-20] MEDS: methylPREDNISolone SOD SUCC 125 MG/2 ML VL IV ONE (19:41)
[2024-11-20 19:44] VITALS: PULSE 105; RESP 18; O2SAT 97
[2024-11-20] MEDS: ONDANSETRON HCL 4 MG/2 ML VIAL IV ONE (19:52)
[2024-11-20 20:00] LABS: COVID19 ANTIGEN SOFIA FIA NEGATIVE (NEGATIVE)
[2024-11-20 20:01] LABS: Rapid Influenza A Negative (Negative); Rapid Influenza B Negative (Negative)
[2024-11-20] MEDS: cefTRIAXone 1GM/50ML D5W 50 ML IV ONE (20:12)
[2024-11-20] MEDS: IOHEXOL 350 MG/ML 100ML IJ ONE (20:28)
[2024-11-20 20:48] LABS: Urine Bacteria None Seen /hpf (None Seen)
--- NOTE | 2024-11-20 20:59 | DVH ---
Procedure: CT CT ANGIO CHEST CONTRAST Reason for study/Clinical History: sob, cp Comparison Study: None available at time of dictation. Exam Date: 11/20/2024 08:20 PM Radiation Dose Information: CT Dose: CTDI volume is 54.01 mGy. Dose-length product is 1341.4 mGy*cm Contrast: Type of contrast: Omnipaque 350: 100 mL Contrast inject: 100 mL Contrast wasted:0 TECHNIQUE: After the uneventful administration of intravenous contrast intravenously, CT imaging was performed through the chest. Coronal and sagittal reformations were performed by the technologist. Sagittal and coronal MIP images were reconstructed and evaluated. FINDINGS: Lower Neck: 1 cm low-density area right lobe of the thyroid may represent cyst. Aorta and Vasculature: Normal caliber of thoracic aorta. No enlargement of the pulmonary artery to mazariegos ggest pulmonary artery hypertension. There are no filling defects in the main right or left pulmonary arteries or tertiary branches. Lymph Nodes: No enlarged intrathoracic lymph nodes. Mediastinum: Heart size is normal. There is no pericardial effusion. The esophagus is unremarkable. Lungs: No focal consolidation, pleural effusion or significant pneumothorax. No suspicious pulmonary nodules or mass. Musculoskeletal: No acute osseous abnormality. Upper abdomen: Limited portions of the upper abdomen are unremarkable. IMPRESSION: 1. No findings of pulmonary emboli. 2. No findings of pulmonary artery hypertension. 3. No infiltrates or effusions. All CT scans at this medical facility are performed using dose modulation techniques as appropriate t o a performed exam including the following: Automated exposure control was utilized; adjustment of th e MA and/or KV according to patient size; and use of iterative reconstruction technique. HS:Y
[2024-11-20 21:25] LABS: Urine Blood 1+ /uL (Negative); Urine Clarity Clear (Clear); Urine Color Light-Orange (Yellow); Urine Mucus MODERATE (None Seen); Urine Protein, UAD 2+ (Negative); Urine Squamous Epithelial Cell FEW /hpf (<5); Urine Urobilinogen 2 mg/dL (Negative); Urine WBC 14 /hpf (0 - 3)
[2024-11-20 21:28] LABS: Urine Specific Gravity > 1.050 (1.001-1.035)
[2024-11-21 02:55] VITALS: PULSE 103; RESP 15; O2SAT 95
[2024-11-21 07:20] VITALS: RESP 17
[2024-11-21] MEDS ORDERED: MORPHINE SULFATE INJ 2 MG/ml SYRG IV PRN (08:30)
[2024-11-21] MEDS: LACTATED RINGER'S 1,000 ML IV ONE (08:30)
[2024-11-21] MEDS ORDERED: ACETAMINOPHEN 325 MG TAB PO PRN (08:30)
[2024-11-21] MEDS ORDERED: HYDROcodone-ACET 5/325MG TAB PO PRN (08:30)
--- NOTE | 2024-11-21 08:41 | DVHHP2 ---
History of Present Illness History of Present Illness 74 year old male w PMHx HLD, HTN, history hiatal hernia status post repair presents to the ED with chief complaint of cough and SOB x 4 days. Patient had cough for last 4 days. Cough was severe and on he had 1 episode of blood-streaked sputum. Mostly the sputum has been thick and yellow. No further episodes of blood in the sputum since the 1 episode on . Also on patient started to have right lower rib pain. The pain is pleuritic and has resolved since Friday. Patient visited urgent care [facility]iate on 11/20 and was advised to come to the ED. Patient denies any fever, chills, N/V/D, dizziness, headache, or nasal congestion. Review of Systems Review of Systems Per HPI Allergies: Coded Allergies: Aspirin (Verified Allergy, Unknown, 06/20/21) Exam Vital Signs Vital Signs Date Time Temp Pulse Resp B/P (MAP) Pulse Ox O2 Delivery O2 Flow Rate FiO2 11/21/24 08:16 83 20 93 Room Air 11/21/24 08:15 123/66 (85) 11/21/24 07:20 0 21 11/21/24 02:55 97.8 97.8 Exam GEN: Healthy appearing, well-developed, NAD. HEENT: NC/AT; dry mucous membranes CV: RRR, no m/r/g. LUNGS: Left lower lobe rhonchi ABD: Mild epigastric tenderness NBS, no masses or organomegaly. EXT: skin Warm, well perfused. no rashes. No clubbing, cyanosis, or edema. NEURO: Ambulating with no limitations. No focal deficits. Labs/Xrays Labs Test 11/20/24 20:36 11/20/24 19:54 11/20/24 19:26 11/20/24 17:28 Range/Units Urine Color Light-orange Yellow Urine Clarity Clear Clear Urine pH 6.0 5.0-9.0 Urine Specific [place] > 1.050 H 1.001-1.035 Urine Protein 2+ H Negative Urine Ketones 1+ H Negative Urine Blood 1+ H Negative /uL Urine Nitrite Negative Negative Urine Bilirubin Negative Negative Urine Urobilinogen 2 H Negative mg/dL Urine Leukocyte Esterase Negative Negative /uL Urine RBC 9 0 - 3 /hpf Urine WBC 14 0 - 3 /hpf Urine Squamous Epithelial Cells Few <5 /hpf Urine Bacteria None seen None Seen /hpf Urine Mucus Moderate None Seen Urine Glucose Normal Normal mg/dL Troponin I High Sensitivity 3 L </=54 ng/L Blood Gas Specimen Type Arterial Blood Gas Sample Site Right radial Blood Gas Patient Temperature 37.0 Arterial Blood Date Drawn [id number] Arterial Blood pH 7.440 7.350-7.450 Arterial Blood Partial Pressure CO2 34.9 L 35.0-48.0 mmHg Arterial Blood Partial Pressure O2 68.6 L 83.0-108.0 mmHg Arterial Blood HCO3 23.2 21.0-28.0 mmol/L Arterial Blood Oxygen Saturation 93.9 L 94.0-98.0 % Arterial Blood Base Excess -0.3 -2.0-3.0 mmol/L Arterial Blood Oxyhemoglobin 92.6 L 94.0-98.0 % Arterial Blood Carboxyhemoglobin 0.9 0.5-1.5 % Arterial Blood Methemoglobin 0.5 0.0-1.5 % Terry Test Yes Blood Gas Total Hemoglobin 15.50 13.5-17.5 g/dL Blood Gas Modality Room air FiO2 % 21.0 Influenza Type A Antigen Negative Negative Influenza Type B Antigen Negative Negative SARS-CoV-2 Antigen (Rapid) Negative NEGATIVE Test 11/20/24 17:23 11/20/24 17:13 Range/Units Lactic Acid Level 1.3 0.4-2.0 mmol/L White Blood Count 14.8 H 4.4-10.8 10^3/uL Red Blood Count 4.96 4.5-5.90 10^6/uL Hemoglobin 15.1 13.5-17.5 g/dL Hematocrit 44.7 41.0-53.0 % Mean Corpuscular Volume 90.2 80.0-100.0 fL Mean Corpuscular Hemoglobin 30.4 28.0-32.0 pg Mean Corpuscular Hemoglobin Concent 33.7 32.0-36.0 g/dL Red Cell Distribution Width 12.6 11.8-14.3 % Platelet Count 283 140-450 10^3/uL Mean Platelet Volume 8.9 6.9-10.8 fL Neutrophils (%) (Auto) 75.9 37.0-80.0 % Lymphocytes (%) (Auto) 10.6 10.0-50.0 % Monocytes (%) (Auto) 13.3 H 0.0-12.0 % Eosinophils (%) (Auto) 0.0 0.0-7.0 % Basophils (%) (Auto) 0.2 0.0-2.0 % Neutrophils # (Auto) 11.2 H 1.6-8.6 10 ^3/uL Lymphocytes # (Auto) 1.6 0.4-5.4 10 ^3/uL Monocytes # (Auto) 2.0 H 0-1.3 10 ^3/uL Eosinophils # (Auto) 0 0-0.8 10 ^3/uL Basophils # (Auto) 0 0-0.2 10 ^3/uL Nucleated Red Blood Cells 0.0 % D-Dimer, Quantitative 1.47 H 0.0-0.49 mg/L FEU Sodium Level 138 136-145 mmol/L Potassium Level 4.1 3.5-5.1 mmol/L Chloride Level 103 98-107 mmol/L Carbon Dioxide Level 24 20-31 mmol/L Anion Gap 11 5-15 Blood Urea Nitrogen 27 H 9-23 mg/dL Creatinine 1.00 0.700-1.30 mg/dL Glomerular Filtration Rate Calc 79 >90 mL/min BUN/Creatinine Ratio 27.0 H 10.0-20.0 Serum Glucose 125 H 74-106 mg/dL Calcium Level 10.3 8.7-10.4 mg/dL Total Bilirubin 1.6 H 0.2-1.0 mg/dL Aspartate Amino Transferase (AST) 22 13-40 U/L Alanine Aminotransferase (ALT) 19 7-40 U/L Alkaline Phosphatase 75 46-116 U/L B-Type Natriuretic Peptide 40.47 0-100 pg/mL Total Protein 7.6 5.7-8.2 g/dL Albumin 4.7 3.2-4.8 g/dL Assessment/Plan Assessment/Plan Community-acquired pneumonia, Gram-negative Gram-positive atypical likely ; ceftriaxone and azithromycin IV PE ruled out D-dimer high, CTA negative Sirs without end-organ damage - tachycardia, leukocytosis; given bolus and maintenance fluids Leukocytosis- WBC 14 Hemoptysis -only 1 episode, resolved Decreased p.o. tolerance-- p.r.n. Zofran Viral syndrome, can not rule out - COVID flu negative Intravascular volume depletion - specific gravity more than 1.050 Hypertension continue home meds Hyperlipidemia continue home meds Regular diet No GI prophylaxis DVT prophylaxis ambulating Med surge Full code Plan discussed with: Patient Date of Service: Nov 21, 2024 Billing Provider: BRITTANEY BARBA MD Common Visit Codes: [id number] INP/OBS CARE (HIGH) BRITTANEY BARBA MD Nov 21, 2024 08:41
[2024-11-21] MEDS: cefTRIAXone 1GM/50ML D5W 50 ML IV SCH (09:16)
[2024-11-21] MEDS: LISINOPRIL 20 MG TAB PO SCH (09:58)
[2024-11-21] MEDS: AZITHROMYCIN 500MG/ 250ML 250 ML IV SCH (10:18)
[2024-11-21] MEDS: ONDANSETRON HCL 4 MG/2 ML VIAL IV PRN (13:31)
[2024-11-21 20:57] VITALS: BP 115/74; PULSE 79; RESP 18; TEMP 97.7; O2SAT 98
[2024-11-21 21:00] VITALS: BP 115/74; PULSE 79; RESP 18; TEMP 97.7; O2SAT 98
--- NOTE | 2024-11-21 22:26 | DVHPN2 ---
Objective Vitals Vital Signs Date Time Temp Pulse Resp B/P (MAP) Pulse Ox O2 Delivery O2 Flow Rate FiO2 11/21/24 15:11 85 18 129/73 (91) 94 11/21/24 08:16 Room Air 11/21/24 07:20 0 21 11/21/24 02:55 97.8 97.8 Intake/Output Intake and Output 11/21/24 07:00 Intake Total 1050 ml Balance 1050 ml Intake IV Total 1050 ml Medications Current Medications Medications Dose Ordered Sig/Serge Route Start Time Stop Time Status Last Admin Dose Admin Acetaminophen/ Hydrocodone Bitart 1 tab Q4HP PRN PO 11/21/24 08:30 Ondansetron HCl 4 mg Q4HP PRN IV 11/21/24 08:30 11/21/24 13:31 4 MG Acetaminophen 650 mg Q6HP PRN PO 11/21/24 08:30 Morphine Sulfate 2 mg Q4HPRN PRN IV 11/21/24 08:30 Ceftriaxone Sodium 50 ml @ 100 mls/hr DAILY@09 IV 11/21/24 09:00 11/21/24 09:16 100 MLS/HR Azithromycin 250 ml @ 125 mls/hr DAILY IV 11/21/24 10:00 11/21/24 10:18 125 MLS/HR Lisinopril 40 mg DAILY PO 11/21/24 10:00 11/21/24 09:58 40 MG Laboratory Results Laboratory Tests 11/20/24 17:13 Urinalysis Test 11/20/24 20:36 Urine Color Light-orange (Yellow) Urine Clarity Clear (Clear) Urine pH 6.0 (5.0-9.0) Urine Specific [place] > 1.050 (1.001-1.035) Urine Protein 2+ (Negative) H Urine Ketones 1+ (Negative) H Urine Blood 1+ /uL (Negative) H Urine Nitrite Negative (Negative) Urine Bilirubin Negative (Negative) Urine Urobilinogen 2 mg/dL (Negative) H Urine Leukocyte Esterase Negative /uL (Negative) Urine RBC 9 /hpf (0 - 3) Urine WBC 14 /hpf (0 - 3) Urine Squamous Epithelial Cells Few /hpf (<5) Urine Bacteria None seen /hpf (None Seen) Urine Mucus Moderate (None Seen) Urine Glucose Normal mg/dL (Normal) JOZEF MO MD Nov 21, 2024 22:26
[2024-11-22] VITALS (12 sets, daily range): BP systolic 102–162; BP diastolic 66–87; PULSE 60–81; RESP 16–20; TEMP 97.5–98.3; O2SAT 92–100
[2024-11-22 07:35] LABS: Basophils # (auto) 0 10 ^3/uL (0-0.2); Basophils % (auto) 0.1 % (0.0-2.0); Eosinophils # (auto) 0 10 ^3/uL (0-0.8); Hemoglobin 13.2 g/dL (13.5-17.5); Lymphocytes # (auto) 1.8 10 ^3/uL (0.4-5.4); Lymphocytes % (auto) 13.3 % (10.0-50.0); Mean Corpuscular Hemoglobin 30.1 pg (28.0-32.0); Mean Corpuscular Hgb Conc. 33.7 g/dL (32.0-36.0); Mean Corpuscular Volume 89.1 fL (80.0-100.0); Monocytes # (auto) 1.6 10 ^3/uL (0-1.3); Monocytes % (auto) 11.5 % (0.0-12.0); Neutrophils # (auto) 10.4 10 ^3/uL (1.6-8.6); Neutrophils % (auto) 75.1 % (37.0-80.0); Platelet Count (auto) 277 10^3/uL (140-450); Red Blood Cells 4.37 10^6/uL (4.5-5.90); Red Cell Distribution Width 12.2 % (11.8-14.3); White Blood Cell 13.8 10^3/uL (4.4-10.8)
[2024-11-22 07:37] LABS: Alanine Aminotransferase 22 U/L (7-40); Alkaline Phosphatase 56 U/L (46-116); Anion Gap 8 (5-15); BUN/Creatinine Ratio 25.3 (10.0-20.0); Blood Urea Nitrogen 19 mg/dL (9-23); Calcium 9.5 mg/dL (8.7-10.4); Carbon Dioxide 26 mmol/L (20-31); Glucose 101 mg/dL (74-106); Potassium 3.8 mmol/L (3.5-5.1); Sodium 141 mmol/L (136-145)
[2024-11-22 07:38] LABS: Albumin 3.8 g/dL (3.2-4.8); Aspartate Aminotransferase 27 U/L (13-40); Bilirubin, Total 0.7 mg/dL (0.2-1.0); Total Protein 6.2 g/dL (5.7-8.2)
[2024-11-22 07:40] LABS: Chloride 107 mmol/L (98-107)
[2024-11-22] MEDS ORDERED: ALBUTEROL SULF 2.5 MG/0.5ML(0.5%) NEB SOLN NEB PRN (10:00)
[2024-11-22 15:07] LABS: Erythrocyte Sedimentation Rate 13 mm/hr (0-20)
--- NOTE | 2024-11-22 15:16 | DVHSR ---
APPROVED REPORT EXAM: Two-dimensional and M-mode echocardiogram with Doppler and color Doppler. Blood Pressure: 107/71 mmHg INDICATION Rule out structural heart disease, r/o pericarditis RISK FACTORS Height: 68, Weight: 183 DIMENSIONS LVDd (3.8-5.7cm)LA (2D)3.9 (1.9-4.0cm)Aortic Root3.8 (2.0-3.7cm) LVDs (2.5-4.0cm)LA (MM) (1.9-4.0cm)Aortic Cusp Exc1.7 (1.5-2.0cm) EF (%) 45.0 (55-70%)Rt. Atrium4.7 (1.9-4.0cm)Asc. Aorta3.7 cm Mitral Valve MitralMitral Stenosis E wave0.80m/sMV Mean GR.mmHg A wave0.81m/sMV Peak GR.100mmHg E/A ratio1.02D MVAcm2 DECEL [id number] 1/2 [id number] IVRTmsDop MVA2.45cm2 Aortic Valve Aortic ValveAortic Stenosis V11.09m/Loc Mean GR.5mmHg V21.61m/Loc Peak GR.10mmHg LVOT Diameter2.1 (1.8-2.4cm)Doppler AVA2.34cm2 AI P 1/2 Kurm152.21ms Pulmonic Valve V21.12m/s Tricuspid Valve TR Velocity2.38m/s [id number] Conclusion Mildly reduced left ventricular systolic estimated ejection fraction 45% in a global fashion. There is a grade 1 diastolic dysfunction. Normal right ventricular size and dimension. Normal right ventricular systolic function. Slightly i ncreased right ventricular systolic pressure 29 mm of mercury Normal biatrial size and dimension. Normal aortic valve structure and function. Normal mitral valve structure and function. Normal tricuspid valve structure and function. The pulmonary valve is grossly normal. No pericardial effusion.
[2024-11-22] MEDS: DOCUSATE SOD 100 MG CAP PO PRN (15:59)
--- NOTE | 2024-11-22 19:21 | DVHPNRES ---
Progress Note Date Seen: Nov 22, 2024 Resident Creating Document: CHLOÉ ANDREWS JOSE Has the PT tested + for MRSA If YES, has PT been informed?: No Medical Necessity Reason Pt with a Central, PICC or Fol: No Subjective Review of Systems A 74-year-old male with a past medical history of hyperlipidemia (HLD), hypertension (HTN), and a history of hiatal hernia status post repair presents to the ED with a chief complaint of cough and shortness of breath (SOB) for the past four days. The patient had a severe cough for the last four days and experienced one episode of blood-streaked sputum on . Mostly, the sputum has been thick and yellow. There have been no further episodes of blood in the sputum since the one on . Also on , the patient started to have right lower rib pain, which was pleuritic and resolved by Friday. The patient visited urgent care on 11/20 and was advised to come to the ED. The patient denies any fever, chills, nausea, vomiting, diarrhea, dizziness, headache, or nasal congestion. Patient seen and examined at the bedside. Patient is feeling better since admission. Patient is still complaining of cough and shortness of Breath. Patient reports: No new complaints, Feels better Changes from previous H/P or p: Changes Objective vital signs Vital Sign Date Time Temp Pulse Resp B/P (MAP) Pulse Ox O2 Delivery O2 Flow Rate FiO2 11/22/24 16:44 98.3 73 18 125/69 (87) 95 98.3 11/22/24 14:10 Room Air 11/22/24 14:10 0 21 Total Intake and Output 11/21/24 11/21/24 11/22/24 15:00 23:00 07:00 Intake Total 300 ml Balance 300 ml medications Current Medications Medications Dose Ordered Sig/Serge Route Start Time Stop Time Status Last Admin Dose Admin Acetaminophen/ Hydrocodone Bitart 1 tab Q4HP PRN PO 11/21/24 08:30 Ondansetron HCl 4 mg Q4HP PRN IV 11/21/24 08:30 11/21/24 13:31 4 MG Acetaminophen 650 mg Q6HP PRN PO 11/21/24 08:30 Morphine Sulfate 2 mg Q4HPRN PRN IV 11/21/24 08:30 Ceftriaxone Sodium 50 ml @ 100 mls/hr DAILY@09 IV 11/21/24 09:00 11/22/24 09:01 100 MLS/HR Azithromycin 250 ml @ 125 mls/hr DAILY IV 11/21/24 10:00 11/22/24 11:28 125 MLS/HR Lisinopril 40 mg DAILY PO 11/21/24 10:00 11/22/24 09:01 40 MG Ipratropium Shafter 0.5 mg Q6HR NEB 11/22/24 12:00 Albuterol 2.5 mg Q6HPRN PRN NEB 11/22/24 10:00 Docusate Sodium 100 mg BIDPRN PRN PO 11/22/24 15:45 11/22/24 15:59 100 MG Examination General Appearance: Alert, Oriented X3, Cooperative, No acute distress HEENT: Atraumatic, PERRLA, EOMI, Mucous membrane moist/pink Respiratory: Bilateral rhonchi Cardiovascular: Regular rate, Normal S1, Normal S2, No murmurs, no chest wall tenderness Abdominal: Normal bowel sounds, Soft, No tenderness, No hepatospenomegaly, No masses Extremities: No clubbing, No cyanosis, No edema, Normal pulses, No tenderness/swelling Skin: No rashes, No breakdown, No significant lesion Neuro: Normal gait, Normal speech, Strength at 5/5 X4 ext, Normal tone, Sensation intact, Cranial nerves 3-12 NL, Reflexes 2+ Psych/Mental Status: Mental status NL, Mood NL laboratory and microbiology Laboratory Tests 11/22/24 06:00 Test 11/22/24 06:00 Range/Units Serum Glucose 101 74-106 mg/dL Labs and/or images reviewed: Labs reviewed by me, Image(s) reviewed by me Problem List/Assessment/Plan Problem List/Assessment/Plan Sepsis, likely due to pneumonia Pneumonia likely due to Gram-negative Gram-positive bacteria/viral Chest x-ray shows prominent bronchovascular marking, with bilateral lower zone infiltration Patient had tachycardia, with raised WBC at 14.8, C-reactive protein is raised at 3.92 Influenza type a, B and COVID-19 are negative Check MRSA nares Sputum culture Injection azithromycin and ceftriaxone Breathing treatment every 6 hours Hypertension Lisinopril 40 mg daily Vitamin B12 deficiency, supplemented Vitamin D deficiency, supplemented Hyperbilirubinemia, bilirubin is raised at 1.6, monitoring Ruled out pulmonary emboli D-dimer is raised at 1.47 CTA shows no pulmonary emboli DIET: Cardiac diet DVT PROPHYLAXIS: Lovenox GI PROPHYLAXIS:: Protonix BOWEL REGIMEN: Colace as needed CODE STATUS: Goal of care discussed for more than 20 minutes, full code DISPOSITION: Med surge Patient's status discussed with the patient and daughter through the phone. Case discussed with Dr. Alan Plan discussed with: Daughter, Other (RN) My Orders My Orders Orders - CHLOÉ ANDREWS Procedure Category Date Status Time Mrsa Screen KIMBERLY 11/22/24 Logged 09:51 Respiratory Culture KIMBERLY 11/22/24 Logged W/ Gs 09:51 Ipratropium Medneb PHA 11/22/24 In Process (Atrovent Medneb) 12:00 Albuterol Medneb PHA 11/22/24 In Process (Ventolin Medneb) 10:00 Docusate Sodium PHA 11/22/24 In Process Capsule (Colace 15:45 Date of Service: Nov 22, 2024 Billing Provider: JOHNATHAN ALAN MD Common Visit Codes: 37555-IISYPTYHKQ INP/OBS CARE(HIGH) Secondary Visit Codes: 52056-[id number] CARE PLAN 30 MINUTES CHLOÉ ANDREWSENT Nov 22, 2024 19:20 JOHNATHAN ALAN MD Nov 22, 2024 20:19
[2024-11-22] MEDS: ERGOCALCIFEROL 50,000 UNIT(1.25MG) CAP PO SCH (22:38)
[2024-11-22] MEDS: CYANOCOBALAMIN (B-12) 1000 MCG/1 ML VIAL IM ONE (22:40)
[2024-11-23] VITALS (12 sets, daily range): BP systolic 102–125; BP diastolic 68–74; PULSE 66–93; RESP 16–18; TEMP 97.2–99.1; O2SAT 95–100
[2024-11-23] MEDS: IPRATROPIUM BROM 0.5 MG/2.5ML INH SOL NEB SCH (06:35)
[2024-11-23 06:37] LABS: Basophils # (auto) 0 10 ^3/uL (0-0.2); Basophils % (auto) 0.5 % (0.0-2.0); Eosinophils # (auto) 0.1 10 ^3/uL (0-0.8); Eosinophils % (auto) 1.1 % (0.0-7.0); Hematocrit 38.7 % (41.0-53.0); Lymphocytes % (auto) 25.6 % (10.0-50.0); Mean Corpuscular Hemoglobin 30.2 pg (28.0-32.0); Mean Corpuscular Hgb Conc. 33.6 g/dL (32.0-36.0); Mean Corpuscular Volume 89.9 fL (80.0-100.0); Monocytes # (auto) 1.3 10 ^3/uL (0-1.3); Monocytes % (auto) 16.2 % (0.0-12.0); Neutrophils # (auto) 4.4 10 ^3/uL (1.6-8.6); Neutrophils % (auto) 56.6 % (37.0-80.0); Nucleated Red Blood Cells % 0.1 %; Platelet Count (auto) 272 10^3/uL (140-450); Red Cell Distribution Width 12.5 % (11.8-14.3); White Blood Cell 7.8 10^3/uL (4.4-10.8)
--- NOTE | 2024-11-23 14:01 | DVHDSRES ---
Discharge Summary Date of Admission Resident Creating Document: CHLOÉ ANDREWS RESDIHUDSON Nov 21, 2024 at 08:27 Date of Discharge: Nov 23, 2024 Admitting Diagnosis Community-acquired pneumonia due to Gram-positive Gram-negative bacteria Labs/Diagnostic Data: Laboratory Results Test 11/23/24 04:52 11/22/24 06:00 11/20/24 20:36 11/20/24 19:54 White Blood Count 7.8 10^3/uL (4.4-10.8) Red Blood Count 4.30 10^6/uL (4.5-5.90) Hemoglobin 13.0 g/dL (13.5-17.5) Hematocrit 38.7 % (41.0-53.0) Mean Corpuscular Volume 89.9 fL (80.0-100.0) Mean Corpuscular Hemoglobin 30.2 pg (28.0-32.0) Mean Corpuscular Hemoglobin Concent 33.6 g/dL (32.0-36.0) Red Cell Distribution Width 12.5 % (11.8-14.3) Platelet Count 272 10^3/uL (140-450) Mean Platelet Volume 8.3 fL (6.9-10.8) Neutrophils (%) (Auto) 56.6 % (37.0-80.0) Lymphocytes (%) (Auto) 25.6 % (10.0-50.0) Monocytes (%) (Auto) 16.2 % (0.0-12.0) Eosinophils (%) (Auto) 1.1 % (0.0-7.0) Basophils (%) (Auto) 0.5 % (0.0-2.0) Neutrophils # (Auto) 4.4 10 ^3/uL (1.6-8.6) Lymphocytes # (Auto) 2.0 10 ^3/uL (0.4-5.4) Monocytes # (Auto) 1.3 10 ^3/uL (0-1.3) Eosinophils # (Auto) 0.1 10 ^3/uL (0-0.8) Basophils # (Auto) 0 10 ^3/uL (0-0.2) Nucleated Red Blood Cells 0.1 % Erythrocyte Sedimentation Rate 13 mm/hr (0-20) Sodium Level 141 mmol/L (136-145) Potassium Level 3.8 mmol/L (3.5-5.1) Chloride Level 107 mmol/L (98-107) Carbon Dioxide Level 26 mmol/L (20-31) Anion Gap 8 (5-15) Blood Urea Nitrogen 19 mg/dL (9-23) Creatinine 0.75 mg/dL (0.700-1.30) Glomerular Filtration Rate Calc 95 mL/min (>90) BUN/Creatinine Ratio 25.3 (10.0-20.0) Serum Glucose 101 mg/dL (74-106) Calcium Level 9.5 mg/dL (8.7-10.4) Total Bilirubin 0.7 mg/dL (0.2-1.0) Aspartate Amino Transferase (AST) 27 U/L (13-40) Alanine Aminotransferase (ALT) 22 U/L (7-40) Alkaline Phosphatase 56 U/L (46-116) C-Reactive Protein High Sensitivity 3.92 mg/dL (<1.0) Total Protein 6.2 g/dL (5.7-8.2) Albumin 3.8 g/dL (3.2-4.8) Vitamin B12 Level 291 pg/mL (211-911) Vitamin D 25-Hydroxy 32.8 ng/mL (30.0-100) Urine Color Light-orange (Yellow) Urine Clarity Clear (Clear) Urine pH 6.0 (5.0-9.0) Urine Specific [place] > 1.050 (1.001-1.035) Urine Protein 2+ (Negative) Urine Ketones 1+ (Negative) Urine Blood 1+ /uL (Negative) Urine Nitrite Negative (Negative) Urine Bilirubin Negative (Negative) Urine Urobilinogen 2 mg/dL (Negative) Urine Leukocyte Esterase Negative /uL (Negative) Urine RBC 9 /hpf (0 - 3) Urine WBC 14 /hpf (0 - 3) Urine Squamous Epithelial Cells Few /hpf (<5) Urine Bacteria None seen /hpf (None Seen) Urine Mucus Moderate (None Seen) Urine Glucose Normal mg/dL (Normal) Troponin I High Sensitivity 3 ng/L (</=54) Test 11/20/24 19:26 11/20/24 17:28 11/20/24 17:23 11/20/24 17:13 Blood Gas Specimen Type Arterial Blood Gas Sample Site Right radial Blood Gas Patient Temperature 37.0 Arterial Blood Date Drawn [id number] Arterial Blood pH 7.440 (7.350-7.450) Arterial Blood Partial Pressure CO2 34.9 mmHg (35.0-48.0) Arterial Blood Partial Pressure O2 68.6 mmHg (83.0-108.0) Arterial Blood HCO3 23.2 mmol/L (21.0-28.0) Arterial Blood Oxygen Saturation 93.9 % (94.0-98.0) Arterial Blood Base Excess -0.3 mmol/L (-2.0-3.0) Arterial Blood Oxyhemoglobin 92.6 % (94.0-98.0) Arterial Blood Carboxyhemoglobin 0.9 % (0.5-1.5) Arterial Blood Methemoglobin 0.5 % (0.0-1.5) Terry Test Yes Blood Gas Total Hemoglobin 15.50 g/dL (13.5-17.5) Blood Gas Modality Room air FiO2 % 21.0 Influenza Type A Antigen Negative (Negative) Influenza Type B Antigen Negative (Negative) SARS-CoV-2 Antigen (Rapid) Negative (NEGATIVE) Lactic Acid Level 1.3 mmol/L (0.4-2.0) D-Dimer, Quantitative 1.47 mg/L FEU (0.0-0.49) B-Type Natriuretic Peptide 40.47 pg/mL (0-100) Other Laboratory Tests 11/23/24 04:52 11/22/24 06:00 Brief Hx & Hospital Course: A 74-year-old male with a past medical history of hyperlipidemia (HLD), hypertension (HTN), and a history of hiatal hernia status post repair presents to the ED with a chief complaint of cough and shortness of breath (SOB) for the past four days. The patient had a severe cough for the last four days and experienced one episode of blood-streaked sputum on . Mostly, the sputum has been thick and yellow. There have been no further episodes of blood in the sputum since the one on . Also on , the patient started to have right lower rib pain, which was pleuritic and resolved by Friday. The patient visited urgent care on 11/20 and was advised to come to the ED. The patient denies any fever, chills, nausea, vomiting, diarrhea, dizziness, headache, or nasal congestion. Chest x-ray showed prominent bronchovascular marking with bilateral lower zone infiltration, on examination the patient had tachycardia and bilateral crypts, was raised WBC and CRP. Patient was put on regime of community-acquired pneumonia including injection ceftriaxone and azithromycin, and also given breathing treatment. Influenza and COVID-19 were negative. Home medication for the hypertension was continued, and vitamin B12 and vitamin-D deficiency were supplemented. Due to chest pain and shortness of breath, for the possible pulmonary emboli CTA was performed, ruled out pulmonary emboli. Echocardiogram was done and showed mild systolic heart failure with EF 45%, grade 1 diastolic heart failure. On 11/23, the patient was feeling better, shortness of breaths and chest pain had improved. And the patient was discharged Discharge plan: Follow up with the PCP within 1 week of the discharge Follow up with the discharge Clinic within agreed of the discharge Tablet azithromycin for 3 more days Tablet Augmentin for 3 more days Continue medicine Operations or Procedures [place] [address] Ph: [phone] DIAGNOSTIC IMAGING Diagnostic Imaging Report : [id number] Signed PATIENT: TERRIE HILL ACCT: [id number] UNIT: [id number] : 1950 LOC: [facility] ROOM / BED: [address] [place] [address] AGE / SEX: 74 / M ADM STATUS: ADM IN SERVICE 1332 ORDERING PHYSICIAN: NATALY HUFFMAN RESIDENT PROCEDURE(s): ECIDC - ECHO 2D MODE CARDIAC DOP REASON: rule out structural heart disease, r/o pericarditis. ORDER NUMBER(s): [id number], ACCESSION NUMBER(s): [id number] APPROVED REPORT EXAM: Two-dimensional and M-mode echocardiogram with Doppler and color Doppler. Blood Pressure: 107/71 mmHg INDICATION Rule out structural heart disease, r/o pericarditis RISK FACTORS Height: 68, Weight: 183 DIMENSIONS LVDd (3.8-5.7cm) LA (2D) 3.9 (1.9-4.0cm) Aortic Root 3.8 (2.0- 3.7cm) LVDs (2.5-4.0cm) LA (MM) (1.9-4.0cm) Aortic Cusp Exc 1.7 (1.5- 2.0cm) EF (%) 45.0 (55-70%) Rt. Atrium 4.7 (1.9-4.0cm) Asc. Aorta 3.7 cm Mitral Valve Mitral Mitral Stenosis E wave 0.80m/s MV Mean GR. mmHg A wave 0.81m/s MV Peak GR. 100mmHg E/A ratio 1.0 2D MVA cm2 DECEL Time 203ms PRESS 1/2 Time 90ms IVRT ms Dop MVA 2.45cm2 Aortic Valve Aortic Valve Aortic Stenosis V1 1.09m/s AO Mean GR. 5mmHg V2 1.61m/s AO Peak GR. 10mmHg LVOT Diameter 2.1 (1.8-2.4cm) Doppler JOSE 2.34cm2 AI P 1/2 Time 432.21ms Pulmonic Valve V2 1.12m/s Tricuspid Valve TR Velocity 2.38m/s RVSP 29mmHg Conclusion Mildly reduced left ventricular systolic estimated ejection fraction 45% in a global fashion. There is a grade 1 diastolic dysfunction. Normal right ventricular size and dimension. Normal right ventricular systolic function. Slightly increased right ventricular systolic pressure 29 mm of mercury Normal biatrial size and dimension. Normal aortic valve structure and function. Normal mitral valve structure and function. Normal tricuspid valve structure and function. The pulmonary valve is grossly normal. No pericardial effusion. SIGNED BY: ERIC CAVAZOS MD SIGNED DATE/TIME: 11/22/24 1516 CC: [place] [id number] Ph: [phone] DIAGNOSTIC IMAGING Diagnostic Imaging Report : [id number] Signed PATIENT: TERRIE HILL ACCT: [id number] UNIT: [id number] : 1950 LOC: ER ROOM / BED: / AGE / SEX: 74 / M ADM STATUS: REG ER SERVICE 01 ORDERING PHYSICIAN: ALDEN CALLEJAS DO PROCEDURE(s): CTACH - CT ANGIO CHEST CONTRAST REASON: yuli, chapo ORDER NUMBER(s): [id number], ACCESSION NUMBER(s): [id number] Procedure: CT CT ANGIO CHEST CONTRAST Reason for study/Clinical History: yuli, chapo Comparison Study: None available at time of dictation. Exam Date: 11/20/2024 08:20 PM Radiation Dose Information: CT Dose: CTDI volume is 54.01 mGy. Dose-length product is 1341.4 mGy*cm Contrast: Type of contrast: Omnipaque 350: 100 mL Contrast inject: 100 mL Contrast wasted:0 TECHNIQUE: After the uneventful administration of intravenous contrast intravenously, CT imaging was performed through the chest. Coronal and sagittal reformations were performed by the technologist. Sagittal and coronal MIP images were reconstructed and evaluated. FINDINGS: Lower Neck: 1 cm low-density area right lobe of the thyroid may represent cyst. Aorta and Vasculature: Normal caliber of thoracic aorta. No enlargement of the pulmonary artery to suggest pulmonary artery hypertension. There are no filling defects in the main right or left pulmonary arteries or tertiary branches. Lymph Nodes: No enlarged intrathoracic lymph nodes. Mediastinum: Heart size is normal. There is no pericardial effusion. The esophagus is unremarkable. Lungs: No focal consolidation, pleural effusion or significant pneumothorax. No suspicious pulmonary nodules or mass. Musculoskeletal: No acute osseous abnormality. Upper abdomen: Limited portions of the upper abdomen are unremarkable. IMPRESSION: 1. No findings of pulmonary emboli. 2. No findings of pulmonary artery hypertension. 3. No infiltrates or effusions. All CT scans at this medical facility are performed using dose modulation techniques as appropriate to a performed exam including the following: Automated exposure control was utilized; adjustment of the MA and/or KV according to patient size; and use of iterative reconstruction technique. HS:Y ATED BY: STEPHANIE HANKS Jr., DO DICTATED DATE/TIME: 11/20/242055 SIGNED BY: STEPHANIE HANKS Jr., DO SIGNED DATE/TIME: 11/20/242055 CC: [place] [id number] Ph: [phone] DIAGNOSTIC IMAGING Diagnostic Imaging Report : [id number] Signed PATIENT: TERRIE HILL ACCT: [id number] UNIT: [id number] : 1950 LOC: ER ROOM / BED: / AGE / SEX: 74 / M ADM STATUS: REG ER SERVICE 1367 ORDERING PHYSICIAN: ALDEN CALLEJAS DO PROCEDURE(s): CXRP - CHEST PORTABLE REASON: sob ORDER NUMBER(s): [id number], ACCESSION NUMBER(s): [id number] CHEST RADIOGRAPH Indication: sob Technique: Single frontal view of the chest was obtained Comparison: XY CHEST PORTABLE on DOS: 01/30/24 FINDINGS: Lines and Tubes: None Lungs: No focal consolidation. Pleura: No effusion. No pneumothorax. Cardiomediastinal contours: Unremarkable Bones: No acute osseous abnormality. IMPRESSION: No acute cardiopulmonary disease. ATED BY: ASIA MELENDEZ MD DICTATED DATE/TIME: 11/20/241935 SIGNED BY: ASIA MELENDEZ MD SIGNED DATE/TIME: 11/20/241935 CC: Condition at Discharge: Good Final Diagnosis/Problems List Sepsis, likely due to pneumonia Pneumonia likely due to Gram-negative Gram-positive bacteria/viral Hypertension Vitamin B12 deficiency Vitamin D deficiency Hyperbilirubinemia Ruled out pulmonary emboli Hemodialysis, likely due to pneumonia Intravascular volume depletion Hyperlipidemia Discharge Disposition: Home Discharge Instruct/Medications Diet: Cardiac 2g Na,low cholest Activity: No Restrictions, As Tolerated Follow Up/Referral: Follow up with the PCP within 1 week of the discharge follow up with the discharge Clinic within 1 week of the discharge Medications: Azithromycin 500 mg daily for 3 days Augmentin 875 mg b.i.d. for 3 days Tylenol, as needed for the pain Continue home medicine Discharge Statement: "Patient was advised to return to the ER or call 911 if any headaches, dizziness, shortness of breath, chest pain, abdominal pain, bleeding, fevers, or worsening of medical condition. Patient was counseled about treatment plan, medications, possible side effects, patientverbalized understanding. All questions were answered to the best of my ability. This discharge took greater then 30 minutes in planning, reviewing documentation, counseling the patient, and discussing with other team members." ASSESSMENT ASSESSMENT Assessment Sepsis, likely due to pneumonia Pneumonia likely due to Gram-positive Gram-negative bacterial/viral hypertension vitamin B12 deficiency vitamin-D deficiency Date of Service: Nov 23, 2024 Billing Provider: BRITTANEY BARBA MD Common Visit Codes: 10849-ZTB/OBS DISCH DAY >30min CHLOÉ ANDREWS Nov 23, 2024 14:01 BRITTANEY BARBA MD Dec 09, 2024 09:36
== END 2024-11-23 12:07 | disposition home or self-care (01) | DRG 871 ==
LOC: ER 16:37 → OVERFLOW 11-21 08:27 → WEST WING 11-21 20:57
PROVIDERS: ADMIT Internal Medicine; ATTEND Internal Medicine
DX: A41.50 Gram-negative sepsis, unspecified (principal); J12.9 Viral pneumonia, unspecified; J15.69 Pneumonia due to other Gram-negative bacteria; J15.9 Unspecified bacterial pneumonia; R04.2 Hemoptysis; E86.9 Volume depletion, unspecified; Z20.822 Contact with and (suspected) exposure to COVID-19; E78.5 Hyperlipidemia, unspecified; I10 Essential (primary) hypertension; R09.02 Hypoxemia; B34.9 Viral infection, unspecified; E53.8 Deficiency of other specified B group vitamins; E55.9 Vitamin D deficiency, unspecified; E80.6 Other disorders of bilirubin metabolism; Z88.6 Allergy status to analgesic agent
CPT/HCPCS: 36415; 36600; 71045; 71275; 80053; 81001; 82306; 82607; 82805; 83605; 83880; 84484; 85025; 85379; 85652; 86141; 87040; 87081; 87426; 87804; 93306; 94640; 96361; 96365; 96366; 96367; 96375; G0378; J2405

== ENCOUNTER 2025-08-18 07:16 | Outpatient (CLI) | payer OTHER ==
[~2025-08-18 07:16] MED LIST changes: -CEPH500C PO; -FURO1TAB33 PO; -PRED20TA2 PO
[2025-08-18 07:39] LABS: Urine Protein, UAD TRACE (Negative)
[2025-08-18 07:50] LABS: Hematocrit 42.6 % (41.0-53.0); Hemoglobin 14.7 g/dL (13.5-17.5); Mean Corpuscular Hemoglobin 30.4 pg (28.0-32.0); Mean Corpuscular Volume 88.4 fL (80.0-100.0); Nucleated Red Blood Cells % 0.0 %
[2025-08-18 07:57] LABS: Alanine Aminotransferase 17 U/L (7-40); Albumin 4.5 g/dL (3.2-4.8); Alkaline Phosphatase 53 U/L (46-116); Anion Gap 8 (5-15); BUN/Creatinine Ratio 12.7 (10.0-20.0); Bilirubin, Total 0.9 mg/dL (0.2-1.0); Blood Urea Nitrogen 13 mg/dL (9-23); Calcium 9.4 mg/dL (8.7-10.4); Carbon Dioxide 29 mmol/L (20-31); Chloride 106 mmol/L (98-107); Cholesterol 141 mg/dL (< 200); HDL Cholesterol 47 mg/dL (40-59); Potassium 4.5 mmol/L (3.5-5.1); Sodium 143 mmol/L (136-145); Total Protein 7.4 g/dL (5.7-8.2); Triglycerides 102 mg/dL (< 150)
[2025-08-18 07:59] LABS: Glucose 107 mg/dL (74-106)
[2025-08-18 08:59] LABS: Prostate Specific Antigen 1.4 ng/mL (0.0-4.0)
[2025-08-18 09:04] LABS: Free T4 (Free Thyroxine) 1.27 ng/dL (0.89-1.76)
== END 2025-08-18 17:00 | disposition home or self-care (01) ==
LOC: LAB 07:16
PROVIDERS: ATTEND Internal Medicine
DX: I10 Essential (primary) hypertension (principal); E78.00 Pure hypercholesterolemia, unspecified; Z79.899 Other long term (current) drug therapy
CPT/HCPCS: 36415; 80053; 80061; 81001; 83036; 84153; 84439; 84443; 85025; 85652